=== PATIENT | male | born 1965 | race American Indian/Alaskan Native ===

== ENCOUNTER 2021-02-04 18:30 | Emergency (ER) | payer SELFPAY ==
[2021-02-04 19:03] VITALS: BP 166/83
--- NOTE | 2021-02-04 20:09 | Emergency Department Report ---
ED General Adult HPI - General Chief complaint: Hyperglycemia Stated complaint: HYPERGLYCEMIA Time Seen by Provider: 02/04/21 19:37 Source: patient Mode of arrival: Ambulatory Limitations: No Limitations - History of Present Illness Initial comments: Patient is a 55-year-old female presents emergency room with complaints of generalized weakness, urinary frequency, dry mouth, increased thirst, lightheadedness that began 2 weeks ago. she states that she also has vaginal itching but no discharge, dysuria, or vaginal burning/lesions. She denies any nausea, vomiting, diarrhea, fever, cough, shortness of breath, chest pain, abdominal pain. Patient states that she went to urgent care today and was advised that her sugar was in the 400s. She denies any previous history of diabetes. She states that she has not seen a doctor in several years. She d enies any known past medical problems. She has no known allergies. - Related Data Previous Rx's Medication Instructions Recorded Last Taken Type Fluconazole [Diflucan TAB] 150 mg PO QDAY 1 Days #3 tablet 02/04/21 Unknown Rx Miconazole/Cleanser 17 On Wipe 1 each VG QHS #1 kit 02/04/21 Unknown Rx [Miconazole 3 Combo Pack] metFORMIN [Glucophage] 500 mg PO BID 30 Days #60 tablet 02/04/21 Unknown Rx Allergies Allergy/AdvReac Type Severity Reaction Status Date / Time No Known Allergies Allergy Unverified 02/04/21 19:00 ED Review of Systems ROS: Stated complaint: HYPERGLYCEMIA Other details as noted in HPI Comment: All other systems reviewed and negative ED Past Medical Hx - Past Medical History Previous Medical History?: No - Surgical History Past Surgical History?: Yes Additional Surgical History: - Medications Home Medications: Home Medications Medication Instructions Recorded Confirmed Last Taken Type Fluconazole [Diflucan TAB] 150 mg PO QDAY 1 Days #3 tablet 02/04/21 Unknown Rx Miconazole/Cleanser 17 On Wipe 1 each VG QHS #1 kit 02/04/21 Unknown Rx [Miconazole 3 Combo Pack] metFORMIN [Glucophage] 500 mg PO BID 30 Days #60 tablet 02/04/21 Unknown Rx ED Physical Exam - General Limitations: No Limitations General appearance: alert, in no apparent distress - Head Head exam: Present: atraumatic, normocephalic - Eye Eye exam: Present: normal appearance - ENT ENT exam: Present: mucous membranes dry (mildly) - Respiratory Respiratory exam: Present: normal lung sounds bilaterally. Absent: respiratory distress, wheezes, rales, rhonchi, stridor, chest wall tenderness, accessory muscle use, decreased breath sounds, prolonged expiratory - Cardiovascular Cardiovascular Exam: Present: regular rate, normal rhythm, normal heart sounds. Absent: systolic murmur, diastolic murmur, rubs, gallop - GI/Abdominal GI/Abdominal exam: Present: soft, normal bowel sounds. Absent: distended, tenderness, guarding, rebound, rigid - Neurological Exam Neurological exam: Present: alert, oriented X3 - Psychiatric Psychiatric exam: Present: normal affect, normal mood - Skin Skin exam: Present: warm, dry, intact ED Course Vital Signs 02/04/21 19:02 Temperature 98.5 F Pulse Rate 91 H Respiratory 20 Rate Blood Pressure 166/83 [Right] O2 Sat by Pulse 98 Oximetry ED Medical Decision Making - Lab Data Result diagrams: 02/04/21 19:47 02/04/21 19:47 Lab Results 02/04/21 02/04/21 02/04/21 Range/Units 19:05 19:47 19:47 WBC 7.0 (4.5-11.0) K/mm3 RBC 4.73 (3.65-5.03) M/mm3 Hgb 13.8 (11.8-15.2) gm/dl Hct 41.9 (35.5-45.6) % MCV 89 (84-94) fl MCH 29 (28-32) pg MCHC 33 (32-34) % RDW 13.8 (13.2-15.2) % Plt Count 262 (140-440) K/mm3 Lymph % (Auto) 28.2 (13.4-35.0) % Perkins % (Auto) 10.2 H (0.0-7.3) % Eos % (Auto) 3.3 (0.0-4.3) % Baso % (Auto) 1.4 (0.0-1.8) % Lymph # (Auto) 2.0 (1.2-5.4) K/mm3 Perkins # (Auto) 0.7 (0.0-0.8) K/mm3 Eos # (Auto) 0.2 (0.0-0.4) K/mm3 Baso # (Auto) 0.1 (0.0-0.1) K/mm3 Seg Neutrophils % 56.9 (40.0-70.0) % Seg Neutrophils # 4.0 (1.8-7.7) K/mm3 VBG pH (7.320-7.420) Sodium 136 L (137-145) mmol/L Potassium 4.2 (3.6-5.0) mmol/L Chloride 98.1 (98-107) mmol/L Carbon Dioxide 23 (22-30) mmol/L Anion Gap 19 mmol/L BUN 10 (9-20) mg/dL Creatinine 0.6 L (0.8-1.3) mg/dL Estimated GFR > 60 ml/min BUN/Creatinine Ratio 17 % Glucose 341 H (75-100) mg/dL POC Glucose 357 H (70-105) mg/dL Calcium 9.4 (8.4-10.2) mg/dL Total Bilirubin 0.30 (0.1-1.2) mg/dL AST 14 (5-40) units/L ALT 15 (7-56) units/L Alkaline Phosphatase 84 (35-129) units/L Total Protein 8.0 (6.3-8.2) g/dL Albumin 4.2 (3.9-5) g/dL Albumin/Globulin Ratio 1.1 % Urine Color (Yellow) Urine Turbidity (Clear) Urine pH (5.0-7.0) Ur Specific [place] (1.003-1.030) Urine Protein (Negative) mg/dL Urine Glucose (UA) (Negative) mg/dL Urine Ketones (Negative) mg/dL Urine Blood (Negative) Urine Nitrite (Negative) Urine Bilirubin (Negative) Urine Urobilinogen (<2.0) mg/dL Ur Leukocyte Esterase (Negative) Urine WBC (Auto) (0.0-6.0) /HPF Urine RBC (Auto) (0.0-6.0) /HPF U Epithel Cells (Auto) (0-13.0) /HPF Urine Bacteria (Auto) (Negative) /HPF Urine Mucus /HPF 02/04/21 02/04/21 Range/Units 19:47 Unknown WBC (4.5-11.0) K/mm3 RBC (3.65-5.03) M/mm3 Hgb (11.8-15.2) gm/dl Hct (35.5-45.6) % MCV (84-94) fl MCH (28-32) pg MCHC (32-34) % RDW (13.2-15.2) % Plt Count (140-440) K/mm3 Lymph % (Auto) (13.4-35.0) % Perkins % (Auto) (0.0-7.3) % Eos % (Auto) (0.0-4.3) % Baso % (Auto) (0.0-1.8) % Lymph # (Auto) (1.2-5.4) K/mm3 Perkins # (Auto) (0.0-0.8) K/mm3 Eos # (Auto) (0.0-0.4) K/mm3 Baso # (Auto) (0.0-0.1) K/mm3 Seg Neutrophils % (40.0-70.0) % Seg Neutrophils # (1.8-7.7) K/mm3 VBG pH 7.392 (7.320-7.420) Sodium (137-145) mmol/L Potassium (3.6-5.0) mmol/L Chloride (98-107) mmol/L Carbon Dioxide (22-30) mmol/L Anion Gap mmol/L BUN (9-20) mg/dL Creatinine (0.8-1.3) mg/dL Estimated GFR ml/min BUN/Creatinine Ratio % Glucose (75-100) mg/dL POC Glucose (70-105) mg/dL Calcium (8.4-10.2) mg/dL Total Bilirubin (0.1-1.2) mg/dL AST (5-40) units/L ALT (7-56) units/L Alkaline Phosphatase (35-129) units/L Total Protein (6.3-8.2) g/dL Albumin (3.9-5) g/dL Albumin/Globulin Ratio % Urine Color Yellow (Yellow) Urine Turbidity Clear (Clear) Urine pH 5.0 (5.0-7.0) Ur Specific [place] 1.036 H (1.003-1.030) Urine Protein 100 mg/dl (Negative) mg/dL Urine Glucose (UA) >=500 (Negative) mg/dL Urine Ketones 80 (Negative) mg/dL Urine Blood Neg (Negative) Urine Nitrite Neg (Negative) Urine Bilirubin Neg (Negative) Urine Urobilinogen < 2.0 (<2.0) mg/dL Ur Leukocyte Esterase Neg (Negative) Urine WBC (Auto) 1.0 (0.0-6.0) /HPF Urine RBC (Auto) 3.0 (0.0-6.0) /HPF U Epithel Cells (Auto) 7.0 (0-13.0) /HPF Urine Bacteria (Auto) 1+ (Negative) /HPF Urine Mucus Few /HPF - Medical Decision Making Patient is a 55-year-old female presents emergency room with complaints of generalized weakness, urinary frequency, dry mouth, increased thirst, lightheadedness that began 2 weeks ago. she states that she also has vaginal itching but no discharge, dysuria, or vaginal burning/lesions. She denies any nausea, vomiting, diarrhea, fever, cough, shortness of breath, chest pain, abdominal pain. Patient states that she went to urgent care today and was advised that her sugar was in the 400s. She denies any previous history of diabetes. She states that she has not seen a doctor in several years. She d enies any known past medical problems. She has no known allergies. Vitals are stable. Labs with hyperglycemia of 351, venous pH is normal. Do not suspect DKA. Patient presenting with type 2 diabetes, will be started on Metformin. Patient states that she also has vaginal itching, likely secondary to candidiasis from her hyperglycemia, patient given miconazole and fluconazole. Advised patient Please use medication as prescribed. Please eat a low carbohydrate low sugar diet. Please get a glucose meter [id number] and check your sugar twice a day and keep a log and take this to the primary care doctor. Follow-up with a primary care doctor. Increase your water intake over the next several days. Return to emergency room for any new or worsening symptoms. Critical care attestation.: If time is entered above; I have spent that time in minutes in the direct care of this critically ill patient, excluding procedure time. ED Disposition Clinical Impression: Hyperglycemia, Candidiasis Disposition: DC-01 TO HOME OR SELFCARE Is pt being admited?: No Does the pt Need Aspirin: No Condition: Stable Instructions: Type 2 Diabetes Mellitus, Diagnosis, Adult, Hyperglycemia, [id number], Type 2 Diabetes Mellitus, Self Care, Adult, [id number], Carbohydrate Counting for Diabetes Mellitus, Adult Additional Instructions: Please use medication as prescribed. Please eat a low carbohydrate low sugar diet. Please get a glucose meter [id number] and check your sugar twice a day and keep a log and take this to the primary care doctor. Follow-up with a primary care doctor. Increase your water intake over the next several days. Return to emergency room for any new or worsening symptoms. Prescriptions: Miconazole/Cleanser 17 On Wipe [Miconazole 3 Combo Pack] 1 each VG QHS #1 kit Fluconazole [Diflucan TAB] 150 mg PO QDAY 1 Days #3 tablet metFORMIN [Glucophage] 500 mg PO BID 30 Days #60 tablet Referrals: [facility] [Provider Group] - 2-3 Days GAURANG KELLEY MD [Staff Physician] - 2-3 Days Time of Disposition: 21:47 Print Language: SERBIAN
[2021-02-04 20:18] LABS: Basophils # (Auto) 0.1 K/mm3 (0.0-0.1); Basophils % (Auto) 1.4 % (0.0-1.8); Eosinophils # (Auto) 0.2 K/mm3 (0.0-0.4); Eosinophils % (Auto) 3.3 % (0.0-4.3); Hematocrit 41.9 % (35.5-45.6); Hemoglobin 13.8 gm/dl (11.8-15.2); Lymphocytes % (Auto) 28.2 % (13.4-35.0); Mean Corpuscular HGB Conc 33 % (32-34); Mean Corpuscular Volume 89 fl (84-94); Monocytes # (Auto) 0.7 K/mm3 (0.0-0.8); Monocytes % (Auto) 10.2 % (0.0-7.3); Platelet Count 262 K/mm3 (140-440); Red Blood Count 4.73 M/mm3 (3.65-5.03); Red Cell Distribution Width 13.8 % (13.2-15.2)
[2021-02-04 20:40] LABS: Alanine Aminotransferase 15 units/L (7-56); Albumin 4.2 g/dL (3.9-5); BUN/Creatinine Ratio 17; Blood Urea Nitrogen 10 mg/dL (9-20); Calcium 9.4 mg/dL (8.4-10.2); Hemolysis Index 31
[2021-02-04 21:30] LABS: Bacteria,Urine 1+ /HPF (Negative); Bilirubin,Urine NEG (Negative); Blood,Urine NEG (Negative); Color,Urine Yellow (Yellow); Mucus,Urine FEW /HPF; Urobilinogen,Urine < 2.0 mg/dL (<2.0)
== END 2021-02-04 22:00 | disposition home or self-care (01) ==
LOC: EDSEX → ED 18:30
DX: E11.65 Type 2 diabetes mellitus with hyperglycemia (principal); B37.9 Candidiasis, unspecified; Z98.890 Other specified postprocedural states; Z79.899 Other long term (current) drug therapy
CPT/HCPCS: 36415; 80053; 81001; 82805; 82962; 85025

== ENCOUNTER 2021-04-03 10:31 | Emergency (ER) | payer OTHER ==
[2021-04-03 11:11] VITALS: BP 140/75
--- NOTE | 2021-04-03 12:44 | Emergency Department Report ---
Chief Complaint: Medical Clearance Stated Complaint: CHECK BLOOD SUGAR Time Seen by Provider: 04/03/21 12:42 - HPI History of Present Illness: Patient is a 56-year-old female presents emergency room stating that she wants to have a routine blood glucose check. She is not having any symptoms at all. She denies any fever, nausea, vomiting, diarrhea, urinary frequency, dry mouth, lightheadedness, dizziness, chest pain, shortness of breath. Patient has not followed up with her primary care doctor. She has not been checking her blood sugar at home. No allergies to medicines. Vitals are stable On exam: Non toxic appearing, no acute distress atraumatic, normocephalic normal appearance of the eyes, EOMI, no periorbital edema or ecchymosis moist mucus membranes No respiratory distress, no accessory muscle use A&O x4, no focal neuro deficit skin is warm, dry, intact advised pt please increase your water intake. Please get a glucose meter [id number] and check your blood sugar. Eat a low sugar and low carbohydrate diet. Incorporate 30 to 60 minutes of daily exercise. Follow-up with a primary care doctor. It is very important that you follow-up with your primary care doctor. Return to emergency room for any new or worse symptoms. Patient given the appropriate resources Discuss strict return precautions Advised to return if began experiencing any symptoms Medical screen examination performed there is no dental erythema this time - Exam Vital Signs: Vital Signs 04/03/21 11:10 Temperature 98.6 F Pulse Rate 67 Respiratory 18 Rate Blood Pressure 140/75 O2 Sat by Pulse 97 Oximetry MSE screening note: Focused history and physical exam performed. ED Disposition for MSE Clinical Impression: Encounter for medical screening examination Disposition: DC-01 TO HOME OR SELFCARE Is pt being admited?: No Does the pt Need Aspirin: No Condition: Stable Instructions: Type 2 Diabetes Mellitus, Diagnosis, Adult, Preventing Type 2 Diabetes Mellitus, Prediabetes Eating Plan Additional Instructions: Please increase your water intake. Please get a glucose meter [id number] and check your blood sugar. Eat a low sugar and low carbohydrate diet. In corporate 30 to 60 minutes of daily exercise. Follow-up with a primary care doctor. It is very important that you follow-up with your primary care doctor. Return to emergency room for any new or worse symptoms. Referrals: GAURANG KELLEY MD [Staff Physician] - 3-5 Days [facility] [Provider Group] - 3-5 Days [facility] [Outside] - 3-5 Days [facility] [Outside] - 3-5 Days Time of Disposition: 12:43 Print Language: LEBANESE
== END 2021-04-03 13:09 | disposition home or self-care (01) ==
LOC: EDSEX → ED 10:31
DX: Z00.00 Encounter for general adult medical examination without abnormal findings (principal)
CPT/HCPCS: 99282